=== PATIENT | female | born 1970 | race African-American/Black ===

== ENCOUNTER 2018-07-09 10:55 | Emergency (ER) | payer MEDICAID ==
[~2018-07-09] VITALS: Ht 165.1 cm; Wt 68.9 kg
[~2018-07-09 10:55] MED LIST: ABILIFY; ZOLOFT
[2018-07-09 11:38] VITALS: BP 151/85
== END 2018-07-09 14:45 | disposition left against medical advice (07) ==
LOC: ER 10:55
DX: M54.5 Low back pain (principal); Z53.21 Procedure and treatment not carried out due to patient leaving prior to being seen by health care provider

== ENCOUNTER 2018-11-17 18:03 | Emergency (ER) | payer MEDICAID, OTHER ==
[~2018-11-17] VITALS: Ht 172.7 cm; Wt 75.0 kg
[2018-11-17] MEDS ORDERED: IBUPROFEN 600MG TABLET PO ONE (20:15)
[2018-11-18 15:40] VITALS: BP 118/64
== END 2018-11-18 15:55 | disposition home or self-care (01) ==
LOC: ER 18:03
DX: M54.5 Low back pain (principal); G89.29 Other chronic pain; M54.9 Dorsalgia, unspecified; F14.10 Cocaine abuse, uncomplicated; F12.10 Cannabis abuse, uncomplicated; F17.200 Nicotine dependence, unspecified, uncomplicated; Z59.0 Homelessness; Z98.890 Other specified postprocedural states; Z87.440 Personal history of urinary (tract) infections
CPT/HCPCS: 99283

== ENCOUNTER 2020-12-10 18:19 | Emergency (ER) | payer MEDICAID, OTHER ==
[~2020-12-10] VITALS: Ht 162.6 cm; Wt 73.0 kg
[2020-12-10 18:52] VITALS: BP 138/73
== END 2020-12-10 21:11 | disposition left against medical advice (07) ==
LOC: ER 18:19
DX: R68.89 Other general symptoms and signs (principal); Z53.21 Procedure and treatment not carried out due to patient leaving prior to being seen by health care provider

== ENCOUNTER 2021-06-05 21:48 | Emergency (ER) | payer MEDICAID ==
[~2021-06-05] VITALS: Ht 165.1 cm; Wt 64.0 kg
[~2021-06-05 21:48] MED LIST changes: +ASPI-1406 MT; +LIP40 PO
[2021-06-05] MEDS ORDERED: ACETAMINOPHEN 325MG TABLET PO ONE (22:30)
[2021-06-06 00:21] LABS: BASOPHILS % 0.9 % (0.0-2.0); EOSINOPHILS % 1.6 % (0.0-5.0); LYMPHOCYTES % 40.7 % (20.0-50.0); MEAN CORPUSCULAR HEMOGLOBIN 30.2 pg (28.0-32.0); MEAN CORPUSCULAR VOLUME 88.2 fL (81.0-99.0); MEAN PLATELET VOLUME 9.1 fl (7.4-10.4); MONOCYTES % 6.1 % (2.0-8.0); NEUTROPHILS % 50.7 % (40.0-76.0); PLATELET 203 x1000/uL (130-400); RED BLOOD CELL COUNT 4.64 mill/uL (4.2-5.4); RED CELL DISTRIBUTION WIDTH 12.8 % (11.6-14.6)
[2021-06-06 00:34] LABS: CHLORIDE 105 mEq/L (98-107)
[2021-06-06] MEDS ORDERED: ACET-2708 MT (02:20)
[2021-06-06 02:53] VITALS: BP 137/79
== END 2021-06-06 02:55 | disposition home or self-care (01) ==
LOC: ER 21:48
DX: R51.9 Headache, unspecified (principal); M79.604 Pain in right leg; I69.954 Hemiplegia and hemiparesis following unspecified cerebrovascular disease affecting left non-dominant side
CPT/HCPCS: 36415; 80053; 85025; 93971; 99284

== ENCOUNTER 2022-04-27 15:20 | Emergency (ER) | payer MEDICAID ==
[~2022-04-27] VITALS: Ht 165.1 cm; Wt 70.0 kg
[~2022-04-27 15:20] MED LIST changes: +ACET-2708 MT
[2022-04-27] MEDS ORDERED: ALBU6.7H3 INH (18:17)
[2022-04-27] MEDS ORDERED: PERM60CR4 TP (18:17)
[2022-04-27 19:00] VITALS: BP 123/86
== END 2022-04-27 19:02 | disposition home or self-care (01) ==
LOC: ER 15:20
DX: R05.1 Acute cough (principal); R21 Rash and other nonspecific skin eruption; R03.0 Elevated blood-pressure reading, without diagnosis of hypertension; R06.2 Wheezing; Z86.73 Personal history of transient ischemic attack (TIA), and cerebral infarction without residual deficits; Z87.891 Personal history of nicotine dependence
CPT/HCPCS: 71045; 99283

== ENCOUNTER 2022-06-06 09:27 | Emergency (ER) | payer MEDICAID ==
[~2022-06-06] VITALS: Ht 167.6 cm; Wt 82.0 kg
[~2022-06-06 09:27] MED LIST changes: +ALBU6.7H3 INH; +PERM60CR4 TP
[2022-06-06 09:52] VITALS: BP 173/84
[2022-06-06] MEDS ORDERED: KETOROLAC 60MG/2ML VIAL IM STA (10:46)
[2022-06-06] MEDS ORDERED: ACETAMINOPHEN WITH CODEINE 300/30MG TABLET PO STA (10:46)
[2022-06-06 11:37] LABS: CLARITY URINE CLOUDY (CLEAR); COLOR URINE YELLOW (YELLOW); KETONES URINE NEGATIVE (NEGATIVE); LEUKOCYTE ESTERASE URINE 1+ (NEGATIVE); NITRITE URINE NEGATIVE (NEGATIVE); OCCULT BLOOD URINE TRACE (NEGATIVE); PH URINE 5.5 (4.5-8.0); PROTEIN URINE NEGATIVE (NEGATIVE)
[2022-06-06] MEDS ORDERED: LIDOCAINE HCL 1% 10 MG/ML 10ML VIAL INJ NR (15:15)
[2022-06-06] MEDS ORDERED: CEFTRIAXONE SODIUM 500 MG/VIAL IM NR (15:15)
[2022-06-06] MEDS ORDERED: NAPR-681 PO (15:16)
[2022-06-06] MEDS ORDERED: T3 PO (15:16)
[2022-06-06] MEDS ORDERED: DOXY100T28 MT (15:18)
[2022-06-06] MEDS ORDERED: METR-167 PO (15:18)
== END 2022-06-06 17:50 | disposition home or self-care (01) ==
LOC: ER 09:27
DX: S20.212A Contusion of left front wall of thorax, initial encounter (principal); N39.0 Urinary tract infection, site not specified; Z86.73 Personal history of transient ischemic attack (TIA), and cerebral infarction without residual deficits; Z98.890 Other specified postprocedural states; Z59.00 Homelessness unspecified; Y04.0XXA Assault by unarmed brawl or fight, initial encounter; Y93.89 Activity, other specified; Y92.89 Other specified places as the place of occurrence of the external cause; Y99.8 Other external cause status
CPT/HCPCS: 71101; 81003; 87086; 96372; 99284; J0696; J1885; J3490; Z7610

== ENCOUNTER 2022-07-17 23:04 | Emergency (ER) | payer MEDICAID ==
[~2022-07-17] VITALS: Ht 165.1 cm; Wt 62.0 kg
[~2022-07-17 23:04] MED LIST changes: +DOXY100T28 MT; +METR-167 PO; +NAPR-681 PO; +T3 PO
[2022-07-17] MEDS ORDERED: MAGNESIUM/ALUMINUM HYDROXIDE/SIMETHICONE 30ML UDC PO STA (23:35)
[2022-07-17] MEDS ORDERED: ONDANSETRON 4MG ODT PO STA (23:35)
[2022-07-17] MEDS ORDERED: ACETAMINOPHEN 325MG TABLET PO ONE (23:45)
[2022-07-17] MEDS ORDERED: FAMOTIDINE 20MG TABLET PO ONE (23:45)
[2022-07-18 00:28] LABS: *AMPHETAMINES SCREEN URINE NEGATIVE (NEGATIVE); *BARBITURATES SCREEN URINE NEGATIVE (NEGATIVE); *BENZODIAZEPINES SCREEN URINE NEGATIVE (NEGATIVE); *COCAINE SCREEN URINE PRESUMTIVE POSITIVE (NEGATIVE); CANNABINOID URINE SCREEN PRESUMTIVE POSITIVE (NEGATIVE); METHADONE URINE SCREEN NEGATIVE (NEGATIVE); OPIATES URINE SCREEN NEGATIVE (NEGATIVE); PHENCYCLIDINE URINE SCREEN NEGATIVE (NEGATIVE)
[2022-07-18] MEDS ORDERED: ONDA4TAB50 PO (00:41)
[2022-07-18 01:04] VITALS: BP 142/88
== END 2022-07-18 01:00 | disposition home or self-care (01) ==
LOC: ER 23:04
DX: F19.10 Other psychoactive substance abuse, uncomplicated (principal); F14.10 Cocaine abuse, uncomplicated; F12.10 Cannabis abuse, uncomplicated; Z79.899 Other long term (current) drug therapy
CPT/HCPCS: 80305; 99284; Q0162

== ENCOUNTER 2024-11-19 15:28 | Emergency (ER) | payer OTHER ==
[~2024-11-19] VITALS: Ht 170.2 cm; Wt 78.0 kg
[~2024-11-19 15:28] MED LIST changes: -ABILIFY; -ACET-2708 MT; -ALBU6.7H3 INH; -DOXY100T28 MT; -METR-167 PO; -NAPR-681 PO; -PERM60CR4 TP; -T3 PO; -ZOLOFT
[2024-11-19 15:34] VITALS: O2SAT 95
[2024-11-19] MEDS: SODIUM CHLORIDE 0.9% 1,000 ML IV ONE (16:40)
[2024-11-19] MEDS: MORPHINE SULFATE 4 MG/ML INJ (FOR IV/IM USE) IV ONE (16:40)
[2024-11-19 16:44] LABS: BASOPHILS % 1.1 % (0.0-2.0); EOSINOPHILS % 0.7 % (0.0-5.0); HEMATOCRIT. 37.6 % (36.0-48.0); HEMOGLOBIN. 12.6 g/dL (12.0-16.0); LYMPHOCYTES % 23.2 % (20.0-50.0); MEAN PLATELET VOLUME 8.4 fl (7.4-10.4); MONOCYTES % 6.8 % (2.0-8.0); NEUTROPHILS % 68.2 % (40.0-76.0); PLATELET 230 x1000/uL (130-400); RED BLOOD CELL COUNT 4.27 mill/uL (4.2-5.4); RED CELL DISTRIBUTION WIDTH 13.4 % (11.6-14.6)
[2024-11-19 16:57] LABS: CREATININE 0.8 mg/dL (0.6-1.0)
[2024-11-19 16:58] LABS: UREA NITROGEN BLOOD 16 mg/dL (9-23)
[2024-11-19 16:59] LABS: ASPARTATE AMINOTRANSFERASE 96 IU/L (<34)
[2024-11-19 17:00] LABS: BILIRUBIN DIRECT 0.2 mg/dL (<=3.0); BILIRUBIN TOTAL 0.7 mg/dL (0.1-1.0); PROTEIN TOTAL 6.9 g/dL (6.0-8.3)
[2024-11-19 17:01] LABS: INR 1.0
[2024-11-19 19:50] VITALS: BP 153/54; PULSE 82; RESP 14; TEMP 37; O2SAT 97
== END 2024-11-19 20:10 | disposition short-term general hospital (02) ==
LOC: ER 15:28
DX: T20.06XA Burn of unspecified degree of forehead and cheek, initial encounter (principal); T31.0 Burns involving less than 10% of body surface; I10 Essential (primary) hypertension; F14.90 Cocaine use, unspecified, uncomplicated; Z79.899 Other long term (current) drug therapy; Z98.890 Other specified postprocedural states; Z86.73 Personal history of transient ischemic attack (TIA), and cerebral infarction without residual deficits; X58.XXXA Exposure to other specified factors, initial encounter; Y93.89 Activity, other specified; Y92.89 Other specified places as the place of occurrence of the external cause; Y99.8 Other external cause status
CPT/HCPCS: 99285; 96374; 96361; 80076; 80048; 85025; 85610; 85730; 36415; J2270; J7030